=== PATIENT | male | born 1945 | race Two or more races ===

== ENCOUNTER 2020-07-27 07:42 | Observation (INO) | payer MEDICARE ==
[2020-07-25 14:20] LABS: BASOPHILS % 0.1 % (0.0-1.0); EOSINOPHILS # (AUTO) 0.1 (0.0-0.4); EOSINOPHILS % 0.7 % (0.0-6.0); HEMATOCRIT 40.9 % (38.2-49.6); HEMOGLOBIN 13.9 g/dL (14.0-18.0); LYMPHOCYTES # (AUTO) 2.1 (1.0-3.2); LYMPHOCYTES % 28.2 % (18.0-39.1); MEAN CORPUSCULAR HEMOGLOBIN 30.8 pg (28-32); MEAN CORPUSCULAR VOLUME 90.7 fL (81-99); MONOCYTES # (AUTO) 0.6 (0.2-0.8); MONOCYTES % 7.6 % (4.4-11.3); NEUTROPHILS # (AUTO) 4.7 (2.1-6.9); PLATELET COUNT 216 x10e3/uL (140-360); RED BLOOD COUNT 4.51 x10e6/uL (4.3-5.7); RED CELL DISTRIBUTION WIDTH 12.1 % (11.7-14.4)
[2020-07-25 14:39] LABS: PROTHROMBIN TIME 13.7 seconds (11.9-14.5)
[2020-07-25 14:41] LABS: ANION GAP 14.1 mmol/L (8-16); BLOOD UREA NITROGEN 26 mg/dL (7-26); BUN/CREATININE RATIO 22 (6-25); CALCIUM 9.7 mg/dL (8.4-10.2); CARBON DIOXIDE 26 mmol/L (22-29); CHLORIDE 101 mmol/L (98-107); CREATININE, SERUM 1.16 mg/dL (0.72-1.25); EST GLOMERULAR FILTRATION RATE > 60 ML/MIN (60-); GLUCOSE 108 mg/dL (74-118); POTASSIUM 4.1 mmol/L (3.5-5.1); SODIUM 137 mmol/L (136-145)
--- NOTE | 2020-07-25 14:54 | Diagnostic Imaging Report ---
EXAMINATION: CHEST 2 VIEWS INDICATION: Preop for back surgery. ^PRE OP COMPARISON: None FINDINGS: TUBES and LINES: None. LUNGS: Lungs are well inflated. Lungs are clear. There is no evidence of pneumonia or pulmonary edema. PLEURA: No pleural effusion or pneumothorax. HEART AND MEDIASTINUM: The cardiomediastinal silhouette is unremarkable. BONES AND SOFT TISSUES: No acute osseous lesion. Soft tissues are unremarkable. Partially imaged surgical hardware over the lumbar spine. UPPER ABDOMEN: No free air under the diaphragm. IMPRESSION: No acute thoracic abnormality. Signed by: Dr. Miguelito Mojica M.D. on 07/25/2020 2:51 PM
[~2020-07-27] VITALS: Ht 172.7 cm; Wt 82.1 kg
[~2020-07-27 07:42] MED LIST: LOSARTAN-HCTZ1 EAC2 PO; SINEMET 25-1001 EACH PO
[2020-07-27] MEDS ORDERED: THROMBIN FOR SOLN 5,000 UNIT VIAL ONE (08:17)
[2020-07-27] MEDS ORDERED: VANCOMYCIN HCL 1 GM VIAL ONE (08:17)
[2020-07-27] MEDS ORDERED: LIDOCAINE 1% W/EPINEPHRINE 20 ML VIAL ONE (08:17)
[2020-07-27] MEDS ORDERED: CEFAZOLIN SOD 1 GM/NS 50ML 100 ML IV ONE (08:58)
[2020-07-27] MEDS ORDERED: HYDROMORPHONE 2MG/ML 2 MG/ML ML IV PRN (11:30)
[2020-07-27] MEDS ORDERED: CARISOPRODOL 350 MG TAB PO PRN (11:30)
[2020-07-27] MEDS ORDERED: ONDANSETRON HCL INJ 2MG/ML 2ML 2 MG/ML VIAL IV PRN (11:30)
[2020-07-27] MEDS ORDERED: PROMETHAZINE HCL (IM) 25 MG/ML VIAL IM PRN (11:30)
[2020-07-27] MEDS ORDERED: MORPHINE SULFATE 5 MG/ML VIAL IM PRN (11:30)
[2020-07-27] MEDS ORDERED: MAGNESIUM/ALUMINUM/SIMETHICONE 30 ML UDC PO PRN (11:30)
[2020-07-27] MEDS ORDERED: FENTANYL CITRATE/PF 100MCG/2 ML INJ ONE (11:51)
--- NOTE | 2020-07-27 12:23 | Diagnostic Imaging Report ---
EXAMINATION: Lumbar spine radiographs - 1 views CLINICAL HISTORY: L1-2 spinal stenosis COMPARISON: Chest radiograph 07/25/2020 DISCUSSION: Single limited intraoperative cross table radiograph of the lumbar spine. Linear radiopaque surgical markers overlie the T12-L1 and L1-L2 intervertebral disc spaces. Status post L2-L4 posterior spinal fusion with grossly intact hardware. Mild/grade 1 anterolisthesis at L2 on L3. Multilevel degenerative disc changes and facet arthropathy. IMPRESSION: Limited intraoperative lumbar spine radiograph with linear radiopaque surgical markers overlying the T12-L1 and L1-L2 intervertebral disc spaces. Signed by: Dr. Bay Driver M.D. on 07/27/2020 12:20 PM
--- NOTE | 2020-07-27 12:25 | Diagnostic Imaging Report ---
EXAMINATION: Lumbar spine radiographs - 1 views CLINICAL HISTORY: L1-2 spinal stenosis COMPARISON: Chest radiograph 07/25/2020, intraoperative lumbar spine radiograph performed earlier on the same day DISCUSSION: Single limited intraoperative cross table radiograph of the lumbar spine. Metallic surgical forceps overlie the posterior soft tissues at the level of L1-L2. Status post L2-L4 posterior spinal fusion with grossly intact hardware. Mild/grade 1 anterolisthesis at L2 on L3. Multilevel degenerative disc changes and facet arthropathy. IMPRESSION: Limited intraoperative lumbar spine radiograph with metallic surgical forceps overlying the posterior soft tissues at the level of L1-L2. Signed by: Dr. Bay Driver M.D. on 07/27/2020 12:21 PM
[2020-07-27] MEDS ORDERED: LIDOCAINE HCL 2% JELLY 5 ML TUBE ONE (12:45)
[2020-07-27] MEDS ORDERED: GLYCOPYRROLATE INJ 0.2 MG/ML VIAL ONE (12:45)
[2020-07-27] MEDS ORDERED: PROPOFOL IV EMULSION 10 MG/ML 20 ML VIAL ONE (12:45)
[2020-07-27] MEDS ORDERED: DEXAMETHASONE SOD PHOS INJ 4 MG/ML VIAL ONE (12:45)
[2020-07-27] MEDS ORDERED: ONDANSETRON HCL INJ 2MG/ML 2ML 2 MG/ML VIAL ONE (12:45)
[2020-07-27] MEDS ORDERED: ROCURONIUM BROMIDE 10 MG/ML 5ML VIAL IV ONE (12:45)
[2020-07-27] MEDS ORDERED: SEVOFLURANE INHAL SOLN 250 ML PEN BTL ONE (12:45)
[2020-07-27] MEDS ORDERED: EPHEDRINE SULFATE INJ 50 MG/ML VIAL ONE (12:45)
[2020-07-27] MEDS ORDERED: LIDOCAINE HCL 2% LOCAL INJ 5 ML SDV VIAL INJ ONE (12:45)
[2020-07-27] MEDS ORDERED: NEOSTIGMINE 1 MG/ML 10ML VIAL ONE (12:45)
--- NOTE | 2020-07-27 13:55 | NUR ---
Received patient from PACU via stretcher. Accompanied by . [email or web address] to time, person, place, situation. Respirations even and unlabored. Dressing to lower back clean, dry, and intact. Oriented patient and to room. Instructed to use call light for assistance. Voiced understanding. Will continue to monitor.
[2020-07-27 14:00] VITALS: BP 132/76
--- OUTSIDE RECORDS SUMMARY | 2020-07-27 14:09 | XMS REPORT | Continuity of Care Document ---
Author Author [employer] Address Unknown Phone Unavailable Care Team Providers Care Holistic Specialist Name Role Phone [employer] Unavailable Un available Problems Problem Status Onset Date Classification Date Reported Comments Source HTN (hypertension) Active Problem 06/30/2020 [id number] 7802 Elevated BP Active Problem 06/30/2020 [id number] Essential hypertension Active Problem 06/12/2018 2.16.840.1.884397.4.391.11.1 7802 Renal cyst, left Active Diagnosis 05/03/2019 2.16.840.1.860056.4.391.11.1 7802 Screening for colon cancer Act phani Diagnosis 0 04/12/2019 2.16.840.1.399296.4.391.11.1 7802 Prostate cancer screening Acti ve Diagnosis 0 04/12/2019 2.16.840.1.747022.4.391.11.1 7802 Fatigue Active Diagnosis 04/12/2019 2.16.840.1.295447.4.391.11.08326 Medications Medication Details Route Status Patient Instructions Ordering Provider Order Date Source [place] 1 tablet as needed Orally Active 7.5-325 MG Orally every 6 hrs [place] 04/12/2019 [id number] Losartan Potassium-HCTZ TAKE 1 TABLET BY MOUTH EVERY DAY NA Active 100-12.5 MG [place] 2.16.840.1.314378.4.391.11.53367 Allergies, Adverse Reactions, Alerts Substance Category Reaction Severity Reaction type Status Date Reported Comments Source N.K.D.A. Adverse Reaction Info Not Available Adverse Reaction 04/30/2019 2.16.840.1.055981.4.391.11.1 7802 Immunizations No Data Provided for This Section Results No Data Provided for This Section Pathology Reports No Data Provided for This Section Diagnostic Reports No Data Provided for This Section Consultation Notes No Data Provided for This Section Discharge Summaries No Data Provided for This Section History and Physicals No Data Provided for This Section Vital Signs Vital Sign Value Date Comments Source Weight 181 04/30/2019 2.16.840.1.377414.4.391.11.1 7802 Height 69 0 04/30/2019 2.16.840.1.022354.4.391.11.1 7802 Diastolic (mm Hg) 72 04/30/2019 2.16.840.1.773214.4.391.11.47266 Systolic (mm Hg) 136 04/30/2019 2.16.840.1.427096.4.391.11.08170 Weight 184 04/09/2019 2.16.840.1.705205.4.391.11.1 7802 Height 69 0 04/09/2019 2.16.840.1.464240.4.391.11.1 7802 Diastolic (mm Hg) 90 04/09/2019 2.16.840.1.886211.4.391.11.53748 Systolic (mm Hg) 146 04/09/2019 2.16.840.1.542462.4.391.11.45498 Encounters Location Location Details Encounter Type Encounter Number Reason For Visit Attending Provider ADM Date DC Date Status [id number] Active [facility] [id number] [place] 09/09/2019 09/10/2019 [facility] [id number] Ji [place] 10/12/2019 Active [facility] [id number] Ji Lidia 10/12/2019 10/13/2019 [facility] [id number] Ji Lidia 10/26/2019 Active [facility] [id number] [place] 10/26/2019 10/27/2019 [facility] [id number] Ji Lidia 11/11/2019 Active [facility] [id number] [place] Lidia 11/11/2019 11/12/2019 [facility] [id number] [facility] 01/11/2020 Active [facility] [id number] [place] Lidia 01/11/2020 [facility]12/2020 [facility] [id number] [facility] 04/10/2020 Active [facility] [place] Procedures No Data Provided for This Section Assessment and Plan No Data Provided for This Section Plan of Care No Data Provided for This Section Social History Social History Date Source No data available for this section 01/12/2020 [facility] Family History No Data Provided for This Section Advance Directives No Data Provided for This Section Functional Status No Data Provided for This Section
--- OUTSIDE RECORDS SUMMARY | 2020-07-27 14:09 | XMS REPORT | Clinical Summary ---
Author Author [facility] Address Unknown Phone Unavailable Care Team Providers Care [place] Name Role Phone Julián You MD PCP Allergies No Known Active Allergies Medications End Date Status Medication Sig Dispensed Refills Start Date Active ibuprofen (ADVIL) 200 MG Take by 0 tablet mouth. Active meloxicam (MOBIC) 7.5 mg Take by 0 06/09 tablet mouth. 7 Active losartan-hydrochlorothiaz Take 1 tablet 0 krishna (HYZAAR) 100-12.5 mg by mouth per tablet daily. Active Problems Problem Noted Date Other idiopathic scoliosis, thoracolumbar region 01/2018 Fixation hardware in spine 07/20/2018 DDD (degenerative disc disease), thoracolumbar 07/20 Surgical History Surgery Date Site/Laterality Comments SPINE SURGERY 07/16/2008 - 08/14/2008 GALLBLADDER SURGERY HERNIA REPAIR CHOLECYSTECTOMY Medical History Medical History Date Comments Hypertension Wears glasses Family History Medical History Relation Name Comments Cancer Brother Cancer Father Diabetes Father Hypertension Father Diabetes Sister Relation Name Status Comments Brother Father Mother Sister Social History Date Tobacco Use Types Packs/Day Years Used Quit: 1986 Former Smoker Smokeless Tobacco: Never Used Drinks/Week oz/Week Comments Alcohol Use 1-2/week Yes Sex Assigned at Date Recorded Not on file Last Filed Vital Signs Not on file Plan of Treatment Health Maintenance Due Date Last Done Comments COLONOSCOPY SCREENING 1994 SHINGLES VACCINES (#1) 1994 65+ PNEUMOCOCCAL VACCINE 2009 (1 of 1 - PPSV23) INFLUENZA VACCINE 04/15/2020 Results Not on fileafter 07/27/2019 Insurance Type Payer Benefit Subscriber ID Effective Phone Address Plan / Dates Group Medicare MEDICARE MEDICARE [id number] 2009- JIGNESH, PART A AND Present [place] B Commercial AAR AAR [id number] SUPPLEMENT resent Advance Directives For more information, please contact: [phone] Patient Knowledge Manager Explanation Type Date Recorded Advance Directives, Living Will and Medical Power of Smart [employer] Specialist
--- OUTSIDE RECORDS SUMMARY | 2020-07-27 14:09 | XMS REPORT | Continuity of Care Document ---
Author Author [facility] t Organization [facility] Address [address] [place] [address] Phone Unavailable Care Team Providers Care Fisher Sponge Hooking Name Role Phone Awais You MD PCP ОЛЬГА REDD Attphys Unavailable Solomon Murillo Attphys DEVAN POOL M.D. Attphys Unavailable NORBERTO GAONA M.D. Attphys Unavailable CURT SLATER M.D. Attphys Unavailable Payers Payer Name Policy Type Policy Number Effective Date Expiration Date S ource Problems Condition Name Condition Details Condition Category Status Onset Date Resolution Date Last Treatment Date Treating Clinician Comments Source Other idiopathic scoliosis, thoracolumbar region Other idiopathic scoliosis, thoracolumbar region Disease Active 2018-07-20 00:00:00 Mando Chavez Fixation hardware in spine Fixation hardware in spine Disease Active 2018-07-20 00:00:[address] DDD (degenerative disc disease), thoracolumbar DDD (de generative disc disease), thoracolumbar Disease Active 2018-07-20 00:00:00 Mando Chavez History of hypertension History of hypertension Problem Resolved 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 Screening for colon cancer Scr eening for colon cancer Active Diagnosis 04/12/2019 [id number] Diagnosis Active 2019-04-12 02:45:11 [facility] Prostate cancer screening Pros emery cancer screening Active Diagnosis 04/12/2019 [id number] Diagnosis Active 2019-04-12 02:45:11 [facility] Fatigue Fati erin Active Diagnosis 04/12/2019 [id number] Diagnosis Active 2019-04-12 02:45:11 [facility] Allergies, Adverse Reactions, Alerts Allergy Name Allergy Type Status Severity Reaction(s) Onset Date Inacti ve Date Treating Clinician Comments Source N.K.D.A. N.K.D.A. Active Info Not Available 2019-04-30 00:00:00 [facility] No Known Drug Allergies DA Active U 2018-11-12 00:00:00 [facility] No Known Drug Allergies DA Active U 2018-09-30 00:00:00 [facility] No Known Drug Allergies DA Active U 2018-09-29 00:00:00 [facility] Family History Family Member Diagnosis Comments Start Date Stop Date Source Natural brother Cancer [place] [facility] Natural father Cancer [place] [facility] Natural father Diabetes [place] [facility] Natural father Hypertension [place] [facility] Natural sister Diabetes [place] [facility] Social History Social Habit Start Date Stop Date Quantity Comments Source History of tobacco use Current smoker Mando Chavez Sex Assigned At Jeremy brown [facility] Social History 2020-01-12 04:59:59 2020-01-12 04:59:59 Nhan Caba Tobacco use and exposure 2018-08-28 00:00:00 2018-08-28 00:00:00 Ingrid soto used Mando Chavez Alcohol intake 2018-08-28 00:00:00 2018-08-28 00:00:00 Current drinker of alcohol (finding) Mando Chavez Alcohol Comment 2018-07-17 00:00:00 2018-07-17 00:00:00 1-2/week Mando Chavez Smoking Status Start Date Stop Date Source Former smoker 2018-08-28 00:00:00 2018-08-28 00:00:00 Mando Chavez Medications Ordered Medication Name Filled Medication Name Start Date Stop Da te Current Medication? Ordering Clinician Indication Dosage Frequency Signature (SIG) Comments Components Source Losartan Potassium-HCTZ 2020-06-30 02:45:54 Yes Julián You TAKE 1 TABLET BY MOUTH EVERY DAY Nhan Adame nn [place] 2019-04-12 00:00:00 Yes Aubrey O[place] 1 tabl et as needed Nhan Caba losartan-hydrochlorothiazide (HYZAAR) 100-12.5 mg per tablet 2018-08-28 10:34:41 Yes 1{tbl} QD Take 1 tablet by mouth daily. Mando Chavez ibuprofen (ADVIL) 200 MG tablet 2018-07-17 14:38:36 Yes Take by mouth. Mando Chavez Meloxicam 7.5 MG Oral Tablet Meloxicam 7.5 MG Oral Tablet 2017-05-17 5 00:00:00 Yes NORBERTO GAONA M.D. Q0.5D TAKE 1 TABLET TWICE DAILY A S NEEDED. [facility] meloxicam (MOBIC) 7.5 mg tablet 2017-06-09 00:00:00 Yes Take by mouth. Mando Chavez Advil TABS Advil TABS Yes [facility] Vital Signs Vital Name Observation Time Observation Value Comments Source Weight 2019-04-30 19:00:00 Nhan Caba Height 2019-04-30 19:00:00 [facility] [address] Diastolic (mm Hg) 2019-04-30 19:00:00 [facility] [place] Systolic (mm Hg) 2019-04-30 19:00:00 Abdullahi lowl [facility] Weight 2019-04-09 16:00:00 [facility] [place] Height 2019-04-09 16:00:00 [facility] Diastolic (mm Hg) 2019-04-09 16:00:00 [facility] orimichelle [place] Systolic (mm Hg) 2019-04-09 16:00:00 Abdullahi arley Delta Procedures Procedure Date / Time Performed Performing Clinician [facility] e History of Back surgery [facility] Plan of Care Planned Activity Planned Date Details Comments Source Future Scheduled Test 2020-04-15 00:00:00 INFLUENZA VACCINE [code = INFLUENZA VACCINE] [facility] Future Scheduled Test 2009 00:00:00 65+ PNEUMOCOCCAL V ACCINE (1 of 1 - PPSV23) [code = 65+ PNEUMOCOCCAL VACCINE (1 of 1 - PPSV23)] [facility] Future Scheduled Test 1994 00:00:00 COLONOSCOPY SCREEN ING [code = COLONOSCOPY SCREENING] [facility] Future Scheduled Test 1994 00:00:00 SHINGLES VACCINES (#1) [code = SHINGLES VACCINES (#1)] [facility] Encounters Start Date/Time End Date/Time Encounter Type Admission Type Att[facility] Care Department Encounter ID Source 2020-06-28 17:09:00 2020-06-28 17:09:00 Outpatient [facility] [id number] [facility] 2020-01-11 16:45:00 2020-01-11 23:59:59 Outpatient Shushan, P hilip Solomon [facility] [id number] 2019-11-11 11:00:00 2019-11-11 23:59:59 Outpatient Lidia, P hilip Solomon [facility] M[facility]IS[facility]ER [id number] 2019-10-26 15:45:00 2019-10-26 23:59:59 Outpatient Lidia, P hilip Solomon [facility] M[facility] [id number] 2019-10-22 10:08:00 2019-10-22 10:08:00 Outpatient [facility] [id number] [facility] 2019-10-12 11:00:00 2019-10-12 23:59:59 Outpatient Lidia, P hilip Solomon [facility]IS[facility] MHMISCHER [id number] 2019-09-09 16:00:00 2019-09-09 23:59:59 Outpatient Saige Murillo MISCHER MHMISCHER [id number] 2019-07-02 18:13:00 2019-07-02 18:13:00 Outpatient [facility] I [id number] [facility] 2019-04-30 14:00:00 2019-04-30 14:00:00 Outpatient [facility] I [id number] eClinicalWo rks 2019-04-12 15:01:00 2019-04-12 15:01:00 Outpatient [facility] [id number] [facility] 2019-04-09 11:00:00 2019-04-09 11:00:00 Outpatient [facility] I [id number] [facility] 2018-06-11 18:54:00 2018-06-11 18:54:00 Outpatient [facility] I [id number] [facility] 2018-02-26 10:30:00 2018-02-26 10:30:00 Appointment; BHARGAV POOL M.D. DODWAD, SHAH-NAWAZ, M.D. [facility] UTP [id number] [facility] 2018-01-27 08:30:00 2018-01-27 08:30:00 Appointment; VALERIA GAONA M.D. SAMBASIVAN, AJAI, M.D. [facility] UTP [id number] [facility] 2017-10-22 08:30:00 2017-10-22 08:30:00 Appointment; VALERIA GAONA M.D. SAMBASIVAN, AJAI, M.D. [facility] UTP [id number] [facility] 2017-10-02 09:30:00 2017-10-02 09:30:00 Appointment; BHARGAV POOL M.D. DODWAD, SHAH-NAWAZ, M.D. [facility] UTP [id number] [facility] 2017-09-10 11:00:00 2017-09-10 11:00:00 Appointment; VALERIA GAONA M.D. SAMBASIVAN, AJAI, M.D. [facility] UTP [id number] [facility] 2017-08-19 09:00:00 2017-08-19 09:00:00 Appointment; VALERIA GAONA M.D. SAMBASIVAN, AJAI, M.D. [facility] UTP [id number] [facility] 2017-07-30 15:30:00 2017-07-30 15:30:00 Appointment; VALERIA GAONA M.D. SAMBASIVAN, AJAI, M.D. [facility] UTP [id number] [facility] 2017-07-17 15:00:00 2017-07-17 15:00:00 Appointment; VALERIA GAONA M.D. SAMBASIVAN, AJAI, M.D. [facility] UTP [id number] [facility] 2017-06-09 09:00:00 2017-06-09 09:00:00 Appointment; VALERIA GAONA M.D. SAMBASIVAN, AJAI, M.D. [facility] UTP [id number] [facility] 2017-04-14 09:00:00 2017-04-14 09:00:00 Appointment; VALERIA GAONA M.D. SAMBASIVAN, AJAI, M.D. [facility] UTP [id number] [facility] 2017-03-06 11:00:00 2017-03-06 11:00:00 Appointment; VALERIA GAONA M.D. SAMBASIVAN, AJAI, M.D. U[facility] UTP [id number] [facility] 2017-02-04 11:00:00 2017-02-04 11:00:00 Appointment; CURT SLATER M .D. ANSELL, LEE, M.D. UTP UTP [id number] [facility] Results Test Description Test Time Test Comments Results Result Comments Source SPINE 1 VW LUMBAR 2020-07-27 12:20:00 [facility]ENTER[facility]: CLEMENT FAUST : 1945 Sex: M [facility] [address] [address] Patient Name: CLEMENT FAUST MR #: [id number] : 1945 Age/Sex: 75/M Req #: [id number] Adm Physician: Ordered by: ОЛЬГА REDD MD Report #: [id number] Location: OR Room/Bed: Procedure: [id number] DX/SPINE 1 VW LUMBAR Exam Date: 07/27/20 Exam Time: 953 REPORT STATUS: Signed EXAMINATION: Lumbar spine radiographs - 1 views CLINICAL HISTORY: L1-2 spinal stenosis COMPARISON: Chest radiograph 07/25/2020, intraoperative lumbar spine radiograph performed earlier on the same day DISCUSSION: Single limited intraoperative cross table radiograph of the lumbar spine. Metallic surgical forceps overlie the posterior soft tissues at the level of L1-L2. Status post L2-L4 posterior spinal fusion with grossly intact hardware. Mild/grade 1 anterolisthesis at L2 on L3. Multilevel degenerative disc changes and facet arthropathy. IMPRESSION: Limited intraoperative lumbar spine radiograph with metallic surgical forceps overlying the posterior soft tissues at the level of L1-L2. Signed by: Dr. Radha Driver M.D. on 07/27/2020 12:21 PM Dictated By: RADHA DRIVER MD 20 Transcribed By: MARLENE on 07/27/201220 COPY TO: ОЛЬГА REDD MD SPINE 1 VW LUMBAR 2020-07-27 12:16:00 [facility] 1945 Sex: [place] [address] [address] Patient Name: CLEMENT FAUST MR #: [id number] : 1945 Age/Sex: 75/M Req #: [id number] [facility] Physician: Ordered by: ОЛЬГА REDD MD Report #: [id number] Location: OR Room/Bed: Procedure: [id number] DX/SPINE 1 VW LUMBAR Exam Date: 07/27/20 Exam Time: 953 REPORT STATUS: Signed EXAMINATION: Lumbar spine radiographs - 1 views CLINICAL HISTORY: L1-2 spinal stenosis COMPARISON: Chest radiograph 07/25/2020 DISCUSSION: Single limited intraoperative cross table radiograph of the lumbar spine. Linear radiopaqu e surgical markers overlie the T12-L1 and L1-L2 intervertebral disc spaces. Status post L2-L4 posterior spinal fusion with grossly intact hardware. Mild/grade 1 anterolisthesis at L2 on L3. Multilevel degenerative disc changes and facet arthropathy. IMPRESSION: Limited intraoperative lumbar spine radiograph with linear radiopaque surgical markers overlying the T12-L1 and L1-L2 intervertebral disc spaces. Signed by: Dr. Radha Driver M.D. on 07/27/2020 12:20 PM Dictated By: RADHA DRIVER MD 19 Transcribed By: MARLENE on 07/27/201219 COPY TO: ОЛЬГА REDD MD CHEST 2 VIEWS 2020-07-25 14:50:00 [facility] CENTER[facility]: CLEMENT FAUST : 1945 Sex: M [address] [address] Patient Name: CLEMENT FAUST MR #: [id number] : 1945 Age/Sex: 75/M Req #: [id number] [facility] Physician: Ordered by: ОЛЬГА REDD MD Report #: [id number] Location: OR Room/Bed: Procedure: [id number] DX/CHEST 2 VIEWS Exam Date: 07/25/20 Exam Time: 1420 REPORT STATUS: Signed EXAMINATION: CHEST 2 VIEWS INDICATION: Preop for back surgery. PRE OP COMPARISON: None FINDINGS: TUBES and LINES: None. LUNGS: Lungs are well inflated. Lungs are clear. There is no evidence of pneumonia or pulmonary edema. PLEURA: No pleural effusion or pneumothorax. HEART AND MEDIASTINUM: The cardiomediastinal silhouette is unremarkable. BONES AND SOFT TISSUES: No acute osseous lesion. Soft tissues are unremarkable. Partially imaged surgical hardware over the lumbar spine. UPPER ABDOMEN: No free air under the diaphragm. IMPRESSION: No acute thoracic abnormality. Signed by: Dr. Mitul Mojica M.D. on 07/25/2020 2:51 PM Dictated By: MITUL MOJICA MD, MD 50 Transcribed By: MARLENE on 07/25/201450 COPY TO: ОЛЬГА REDD MD - CT L-SPINE W/CONTRAST 2020 12:59:00 [facility] 1945 Sex: M Name: CLEMENT FAUST [facility] : 1945 Age/S: 75 / M [address] Unit #: [id number] Loc: [place] [address] Phys: Reinier Tobar MD Acct: [id number] Dis Date: Status: REG [facility] PHONE #: [phone] Exam Date: 2020 0940 FAX #: [phone] Reason: MYELOGRAM EXAMS: CPT CODE: [id number] CT L-SPINE W/CONTRAST 19504 TECHNIQUE: CT SCAN OF THE LUMBAR SPINE POST MYELOGRAPHY WITH INTRATHECAL CONTRAST COMPARISON: No prior exams available. Technique: After informed consent was obtained, the lumbar spine is evaluated using 15 mL of Isovue-300 which is instilled using a 25-gauge spinal needle inserted into the thecal sac. Multiple post-injection radiographs were obtained in various obliquities. The patient tolerated the procedure well. 2 mm axial slices are obtained of the lumbar spine post myelography with intrathecal contrast and reconstruction. FINDINGS: Alignment: Thoracolumbar dextroscoliosis. Grade 1 ant erolisthesis at L4-L5. L2-L4 interbody/posterolateral instrumented fusion with posterior decompression. Fracture: None present. Mild osseous demineralization. Paraspinal Soft Tissues/ Retroperitoneum: Unremarkable. T11/T12: Left posterior osteophyte/asymmetric disc protrusion results in moderate canal stenosis and moderate left foraminal stenosis. T12/L1: No significant canal stenosis. No significant foraminal stenosis. L1/2: Significant posterior osteophyte and ligamentum flavum hypertrophy results in severe canal stenosis, there is complete effacement of the thecal sac without free flow of contrast at this level. Moderate bilateral facet arthrosis results in moderate bilateral foraminal stenosis. L2/3: No significant canal stenosis. L3/4: No significant canal stenosis. L4/5: Posterior disc bulge and posterior osteophyte and ligamentum flavum hypertrophy results in moderate canal stenosis but with free flow of contrast at this level. Moderate bilateral facet arthrosis results in moderate bilateral foraminal stenosis. Grade 1 anterior listhesis at L4-L5. PAGE 1 Signed Report (CONTINUED) Name: CLEMENT FAUST [facility] : 1945 Age/S: 75 / M [address] [facility] Unit #: [id number] Loc: [place] [address] Phys: Reinier Tobar MD Acct: [id number] Dis Date: Status: [facility] PHONE #: [phone] Exam Date: 07/21/2020939 FAX #: [phone] Reason: MYELOGRAM EXAMS: CPT CODE: [id number] CT L-SPINE W/CONTRAST 21914 <Continued> L5/S1: No significant canal stenosis. Moderate to severe bilateral facet arthrosis results in moderate to severe bilateral foraminal stenosis. IMPRESSION: 1. Severe canal stenosis at L1-L2 with complete effacement of the thecal sac. 2. Mild to moderate canal stenosis at L4-L5. 3. Moderate to severe bilateral facet arthrosis results in moderate to severe bilateral foraminal stenosis at L1-L2, L4-L5, and L5-S1. at 1259 Reported and signed by: Reinier Tobar M.D. CC: Reinier Tobar MD; Ольга Redd MD Technologist:Mica Perdomo,RT(R),CT CTDI: DLP: Trnscb Date/Time: 2020 (2028) [email or web address] Orig Print D/T: S: 2020 (1600) PAGE 2 Signed Report - XR MYELOGRAM L-SPINE 2020 12:59:00 [facility] 1945 Sex: M FAX: Reinier Tobar MD [place]: [address] St: REG FAX: Ольга Rodgers MD [phone] Name: CLEMENT FAUST [facility] : 1945 Age/S: 75/M [address] [facility] Unit #: [id number] Loc: [place] [address] Phys: Reinier Tobar MD Acct: [id number] Dis Date: Status: [facility] PHONE #: [phone] Exam Date: 07/21/202045 FAX #: [phone] Reason: SPINAL STENOSIS EXAMS: CPT CODE: [id number] XR MYELOGRAM L-SPINE 76660 TECHNIQUE: CT SCAN OF THE LUMBAR SPINE POST MYELOGRAPHY WITH INTRATHECAL CONTRAST COMPARISON: No prior exams available. Technique: After informed consent was obtained, the lumbar spine is evaluated using 15 mL of Isovue-300 which is instilled using a 25-gauge spinal needle inserted into the thecal sac. Multiple post-injection radiographs were obtained in various obliquities. The patient tolerated the procedure well. 2 mm axial slices are obtained of the lumbar spine post myelography with intrathecal contrast and reconstruction. FINDINGS: Alignment: Thoracolumbar dextroscoliosis. Grade 1 anterolisthesis at L4-L5. L2-L4 interbody/posterolateral instrumented fusion with posterior decompression. Fracture: None present. Mild osseous demineralization. Paraspinal Soft Tissues/ Retroperitoneum: Unremarkable. T11/T12: Left posterior osteophyte/asymmetric disc protrusion results in moderate canal stenosis and moderate left foraminal stenosis. T12/L1: No significant canal stenosis. No significant foraminal stenosis. L1/2: Significant posterior osteophyte and ligamentum flavum hypertrophy results in severe canal stenosis, there is complete effacement of the thecal sac without free flow of contrast at this level. Moderate bilateral facet arthrosis results in moderate bilateral foraminal stenosis. L2/3: No significant canal stenosis. L3/4: No significant canal stenosis. L4/5: Posterior disc bulge and posterior osteophyte and ligamentum flavum hypertrophy results in moderate canal stenosis but with free flow of contrast at this level. Moderate bilateral facet arthrosis results in moderate bilateral foraminal stenosis. Grade 1 anterior listhesis at L4- L5. PAGE 1 Signed Report (CONTINUED) FAX: Reinier Tobar MD [place]: [address] St: REG FAX: Ольга Rodgers MD [phone] Name: CLEMENT FAUST [facility] : 1945 Age/S: 75/M [address] [facility] [facility] Unit #: [id number] Loc: [place] [address] Phys: Reinier Tobar MD Acct: [id number] Dis Date: Status: [facility] PHONE #: [phone] Exam Date: 07/21/2020944 FAX #: [phone] Reason: SPINAL STENOSIS EXAMS: CPT CODE: [id number] XR MYELOGRAM L-SPINE 41295 <Continued> L5/S1: No significant canal stenosis. Moderate to severe bilateral facet arthrosis results in moderate to severe bilateral foraminal stenosis. IMPRESSION: 1. Severe canal stenosis at L1-L2 with complete effacement of the thecal sac. 2. Mild to moderate canal stenosis at L4-L5. 3. Moderate to severe bilateral facet arthrosis results in moderate to severe bilateral foraminal stenosis at L1-L2, L4-L5, and L5-S1. at 1205 Reported and signed by: Reinier Tobar M.D. CC: Reinier Tobar MD; Ольга Redd MD Technologist: RT KYLE(R) Trnscrd Date/Time/By: 2020 (7659) : By: [email or web address] Orig Print D/T: S: 2020 (7522) PAGE 2 Signed Report PROTHROMBIN TIME 2020-07-20 17:19:00 Test Item PROTHROMBIN TIME PATIENT (test code = PTP) 12.1 seconds 9.0-14.0 N INTERNATIONAL NORMAL RATIO (test code = INR) 1.1 0.8-1.2 N The therapeutic range for oral anticoagulant therapy formost indications is an international normalized ratio (INR)of between 2.0 and 3.0. The recommended therapeutic INRrange for various clinical situations is listed below: Clinical Situation INR range Pulmonary e mbolism treatment (2.0-3.0)Venous thrombosis treatmentVenous thrombosis prophylaxis (high risk surgery)Prevention of systemic embolism from: Acute myocardial infarction Valvular heart disease Atrial fibrillation Mechanical prosthetic heart valves (2.5-3.5) IS PATIENT ON ANTICOAGULANTS? NTHROMBOPLASTIN TIME [id number] 17:19:00* Test Item Value Reference Range Interpretation Comments THROMBOPLASTIN TIME PARTIAL (test code = PTT) 32.2 seconds 23.0-37. 0 N IS PATIENT ON ANTICOAGULANTS? NPLATELET [id number] 17:16:00* Test Item Value Reference Range Interpretation Comments PLATELET COUNT (test code = PLT) 227 K/mm3 150-450 N COVID 19 INHOUSE [id number] 16:54:00* Test Item Value Reference Range Interpretation Comments COVID 19 INHOUSE AG (test code = [id number]) NEGATIVE - XR L-SPINE 4 + [id number] 15:09:00 [facility] 1945 Sex: M FAX: Ольга Woods MD [phone] [place]: St: REG Name: CLEMENT FAUST [facility] : 1945 Age/S: 74/M [address] [facility] Unit #: [id number] Loc: [place] [address] Phys: Ольга Redd MD Acct: [id number] Dis Date: Status: REG CLI PHONE #: [phone] Exam Date: 07/20/2020 1410 FAX #: [phone] Reason: LUMBAR SPO NDYLOLETHESIS EXAMS: CPT CODE: [id number] XR L-SPINE 4 + VIEWS 61934 HISTORY: Lumbar spondylolisthesis TECHN IQUE: AP, lateral, flexion, and extension views of the lumbar spine. FINDINGS: Thoracolumbar dextroscoliosis. Grade 1 anterolisthesis at L4-L5. Vertebral body heights are preserved. Osteopenia. L2-L4 interbod y/posterolateral instrumented fusion with posterior decompression. Moderat e-severe disc space loss with marginal osteophytes at L1-L2 and L4-L5. Mil d L5-S1 disc space loss with marginal osteophytes. Lower lumbar facet arth rosis. No evident paraspinal soft tissue contour abnormality. Mild degener ative changes of the sacral iliac joints. IMPRESSI ON: L2-L4 interbody/posterolateral instrumented fusion with p osterior decompression. Degenerative disc disease and spondylosis above and below the fusion at L1-L2 and L4-L5. Grade 1 anterolisthesis at L4-L 5. Thoracolumbar dextroscoliosis. LOCATION: at 1509 Reported and signed by: Yancy Romero D.O. CC: Ольга Redd MD Technologist: PAM Snyder) Trnscrd Date/Time/By: 07/20/2020 (1503) : By: [email or web address] Orig Print D/ T: S: 07/20/2020 (1491) PAGE 1 Si gned Report - XR FLUORO FOR SPINE [id number] 11:03:00 Patient Name: CLEMENT FAUST Unit No: [id number] EXAMS: CPT CODE: [id number] XR FLUORO FOR SPINE INJ 53061 LUMBAR TRANSFORAMINAL INJECTION AND LUMBAR FACET BLOCK REFERRING PHYSICIAN: PREOPERATIVE DIAGNOSIS: 1. Degenerative Lumbar Disc Disease. 2. Lumbar Facet Arthropathy POSTOPERATIVE DIAGNOSIS: Left L1-2 facet arthropathy left L1-2 radiculopathy and possibly L4-5 L5-S1 facet arthropathy PROCEDURES PERFORMED Fluoroscopically guided needle localization of the left L4, left L1 with transforaminal epidural steroid injections 2. Transforaminal epidurogram/epidurograms at left L4, left L1. 3. Fluoroscopic guided injections of the bilateral L4-5, bilateral L5-S1 left L1-2 intra-articular facets. 4. Arthrograms of the BILATERAL L4-5, L5-S1, left L1-2 lumbar facets FINDINGS: Provocation left L1-2 facet for upper back pain ANTIBIOTIC: Cefazolin ESTIMATED BLOOD LOSS: Minimal ANESTHESIA: (TIVA) Total intravenous anesthetic (patient intolerant to sedatives and hypnotics) COMPLICATIONS: None DETAILS OF PROCEDURE: After obtaining stable vital signs, informed consent and IV access, with no known contraindications to proceeding, the patient was taken to the fluoroscopy suite and placed in a prone position with all extremities padded and appropriate monitors placed. A sterile prep and drape was performed over the lumbosacral spine. Using fluoroscopic visualization at each level the insertion site was marked for a paraver tebral approach to the foramen. Using standard technique, a 25 gauge needl e was advanced to the base of the pedicle. In AP view, final positioning w as obtained outside the 6 o clock position on the pedicle. Then, 1 ml of I sovue-300 contrast was injected to produce the epidurograms. No paresthesi as were elicited with needle insertion or injection and there were no sign s of intravascular or intrathecal uptake. Then, with 1 ml of 4% l idocaine and 10 mg of triamcinolone was injected incrementally with freque nt negative aspirations. There were no signs of intravascular or intrathec al uptake. The patient's vital signs remained stable. The patient was placed in a prone position and the lumbosacral spine [facility] NAME: CLEMENT FAUST [address] [facility] PHYS: Jorge Swanson MD [place], [place] [address] : 1945 AGE: 73 SEX: M LOC: CatherineTOMY PHONE #: [phone] EXAM DATE: 11/13/2018 [place]: [facility] [place] #: [phone] RAD #: D/C DT PAGE 1 Signed Report (CONTINUED) Patient Name: CLEMENT FAUST U nit No: [id number] EXAMS: C PT CODE: [id number] XR FLUORO FOR SPINE INJ 25670 <Continued> was prepped and draped in sterile fashion. Using standard technique, using fluoroscopic guidance, a 27-gauge needle was advanced into the facet joint and 2 mL of Isovue-300 contrast was injected to produce an arthrogram. Please see results of the arthrogram above. Then 2 mL was of 0.75 percent Marcaine and 2 mL of 4% lidocaine and 20 mg of triamcinolone was injected into the joint. Areas were cleaned of the prep and the patient was taken to the recovery room. at 1103 Reported and signed by: Jorge Gibbs M.D. CC: Technologist: Usha Veronica(R) Transcribed D/ (1103) [email or web address] [facility] NAME: CLEMENT FAUST [address] [facility] PHYS: Jorge Swanson MD [place], [place] [address] : 1945 AGE: 73 SEX: M LOC: AMANDA PHONE #: [phone] EXAM DATE: 11/13/2018 STATUS: [facility] [place] FAX #: [phone] RAD #: D/C DT PAGE 2 Signed Report Patient Name: CLEMENT FAUST Unit No: [id number] EXAMS: CPT CODE: [id number] XR FLUORO FOR SPINE INJ 16224 <Continued> Orig Print D/T: S: 11/13/2018 (1106) [facility] NAME: CLEMENT FAUST [address] [facility] PHYS: DOCUD - Doctor,Jorge Bryant MD [place], [place] [address] : 1945 AGE: 73 SEX: M LOC: AMANDA PHONE #: [phone] EXAM DATE: 11/13/2018 [place]US: [facility] [place] FAX #: [phone] RAD #: D/C DT PAGE 3 Signed Report
[2020-07-27 14:21] VITALS: BP 132/76
[2020-07-27] MEDS: OXYCODONE/ACETAMINOPHEN 5-325 1 EACH TABLET PO PRN ×2 (14:39→18:39)
[2020-07-27] MEDS: LACTATED RINGER'S 1,000 ML IV SCH ×2 (14:46→19:50)
[2020-07-27 14:56] VITALS: BP 132/76
--- NOTE | 2020-07-27 15:27 | Operative Report ---
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 POSTOPERATIVE DIAGNOSIS: Severe L1-2 spinal stenosis with neurogenic claudication, M48.062. PROCEDURES: 1. L1 bilateral decompressive laminectomy and L1-2 bilateral medial facetectomies, 72985. 2. L2 bilateral partial decompressive laminectomy, 02989. ANESTHESIA: General. INDICATIONS: The patient is a 75-year-old man who presents with severe L1-2 spinal stenosis above the level of previous L2-4 fusion. He was taken to surgery for bilateral laminectomy without fusion. PROCEDURE IN DETAIL: After induction of general anesthesia, the patient was placed on the operating table in prone position over Eleazar frame. Lumbar region was prepped and draped in sterile fashion. A midline incision was created overlying the L1-2 segment and the lumbar fascia was opened along the midline and dissection was carried out to expose the underlying L1 and the residual L2 lamina. It turned out that the spinous processes of L1 and L2 had been completely resected, but the lamina of L1 remained and the upper margin of the lamina of L2 remained. A second x-ray confirmed correct localization. The operating microscope was brought in. A high-speed drill equipped with tom bur was used to drill the inferior 2/3rd of the lamina of L1 and the medial rim of the L1-2 facet joints bilaterally. The upper rim of the residual lamina of L2 was then carefully drilled away. The ligamentum flavum which was markedly hypertrophic and partially ossified was then carefully dissected away from the dura. Just above the region of the L2 laminectomy, the ligamentum flavum which was partially have ossified, was markedly adherent to the dura, and indented the dura in this region. The ligamentum flavum was very carefully elevated with a micro-hook and small curette and resected. A tiny 2 mm opening in the dura was found after this maneuver through which intact arachnoid could be visualized. No CSF was leaking through this opening. A single 4-0 Nurolon suture on needle holman was used to carefully reapproximate the dural edges and this was overlaid with a fat graft obtained from the subcutaneous compartment. The residual ligamentum flavum was resected bilaterally to fully expose and decompress the dura and the traversing L2 nerve roots bilaterally. After satisfactory decompression had been achieved, the fat graft and the dura were covered with DuraSeal glue. The wound was irrigated with bacitracin solution and closed with 0 and 2-0 Vicryl sutures. The skin was closed with 3-0 Monocryl sutures and reinforced with radha. The dressing was applied. The patient was awakened, extubated, and taken to postanesthesia care unit in stable condition. ESTIMATED BLOOD LOSS: 10 mL. Manuel Redd MD PP/XANDER /[id number]
[2020-07-27] MEDS ORDERED: CARBIDOPA/LEVODOPA 25/100 TAB PO SCH (17:00)
[2020-07-27] MEDS: CEFAZOLIN SOD 1 GM/NS 50ML 50 ML IV SCH (17:24)
--- NOTE | 2020-07-27 18:44 | NUR ---
WALKING ROUNDS PERFORMED, RECEIVED PT LAYING SEMI FOWLERS IN BED, AAOX3, RR EVEN AND NON-LABORED, ON ROOM AIR. NO S/SX OF DISTRESS NOTED. DRESSING TO LOWER POSTERIOR BACK NOTED TO BE INTACT WITH DRAINAGE NOTED. DRAINAGE MARKED AT THIS TIME. PT ASSISTED UP TO START AMBULATING IN [place]. IVF SALINE LOCKED AT THIS TIME PT REPORTS EATING AND DRINKING WITH NO S/SX OF NAUSEA.
--- NOTE | 2020-07-27 19:03 | NUR ---
COMPLETED BEDSIDE REPORT AND ROUNDING WITH ONCOMING NIGHT NURSE. PATIENT IN STABLE CONDITION, NO S/S OF DISTRESS NOTED. RESPIRATIONS EVEN AND NONLABORED. PATIENT ABLE TO VOICE NEEDS. SUMIT HOSE APPLIED. SCDs APPLIED. DRESSING TO THE LOWER BACK C/D/I. IV SITE ASYMPTOMATIC AND PATENT , TRANSPARENT DRESSING C/D/I. BED IN LOWEST POSITION AND LOCKED, SIDE RAILS X 2, NONSKID SOCKS APPLIED. CALL LIGHT WITHIN REACH.
[2020-07-27 20:00] VITALS: BP 122/75
[2020-07-27] MEDS ORDERED: ZOLPIDEM TARTRATE 5 MG TAB PO PRN (21:00)
[2020-07-27 22:15] VITALS: BP 122/75
[2020-07-27] MEDS ORDERED: CEPACOL SORE THROAT LOZENGES PO PRN (23:00)
[2020-07-28] VITALS: BP 130/80
[2020-07-28] MEDS: CEFAZOLIN SOD 1 GM/NS 50ML 50 ML IV SCH ×2 (02:44→09:14)
[2020-07-28] MEDS: ACETAMINOPHEN 325 MG TAB PO PRN ×2 (02:44→03:30)
[2020-07-28 04:00] VITALS: BP 139/83
[2020-07-28] MEDS: LACTATED RINGER'S 1,000 ML IV SCH (04:10)
--- NOTE | 2020-07-28 07:00 | NUR ---
ASSUMED CARE. AAOX3. ACYANOTIC. RESTING IN BED. NO DISTRESS NOTED. CALL LIGHT IN REACH. SIDE RAILS UP X2. BED LOW AND LOCKED.
[2020-07-28 08:00] VITALS: BP 124/67
[2020-07-28 08:10] VITALS: BP 124/67
[2020-07-28] MEDS ORDERED: HYDROCHLOROTHIAZIDE 25 MG TAB PO SCH (09:00)
[2020-07-28] MEDS ORDERED: LOSARTAN POTASSIUM 100 MG TAB PO SCH (09:00)
[2020-07-28] MEDS ORDERED: NON-FORMULARY MEDICATION (Losartan/Hydrochlorothiazide (Losartan-Hctz 100-12.5 Mg Tab) 1 T PO SCH (09:00)
[2020-07-28] MEDS: OXYCODONE/ACETAMINOPHEN 5-325 1 EACH TABLET PO PRN (09:50)
[2020-07-28] MEDS ORDERED: CARBIDOPA/LEVODOPA 25/100 TAB PO SCH ×2 (10:15→17:00)
== END 2020-07-28 10:17 | disposition home or self-care (01) ==
LOC: OR 07:42 → PACU V 11:19 → MED/SURG 13:55
PROVIDERS: ADMIT Neurological Surgery; ATTEND Neurological Surgery
DX: G20 Parkinson's disease (principal); I10 Essential (primary) hypertension; Z20.828 Contact with and (suspected) exposure to other viral communicable diseases
CPT/HCPCS: 36415; 63047; 63048; 71046; 72020; 80048; 85025; 85610; 85730; 86850; 86900; 88304; 88311; 93005; G0378 ×2; J0690 ×2; J1100; J2001 ×2; J2405; J2704; J2710; J3010; J3370; J7121; U0002